=== PATIENT | male | born 1960 | race Caucasian/White ===

== ENCOUNTER 2017-07-22 05:51 | Emergency (ER) | payer OTHER ==
[~2017-07-22] VITALS: Ht 175.3 cm; Wt 92.0 kg
[~2017-07-22 05:51] MED LIST: LORTAB 5 OR; NAPROSYN375 MG OR; NO HOME MEDS; ZOFRAN ODT4 MG OR
[2017-07-22] MEDS ORDERED: TAMSULOSIN0.4 MG PO ×2 (06:01→07:50)
[2017-07-22] MEDS ORDERED: OXYCODONE PO (06:03)
[2017-07-22] MEDS ORDERED: ACETA PO (06:03)
[2017-07-22 06:41] LABS: HEMATOCRIT 43.7 % (39.0-50.0); HEMOGLOBIN 14.9 g/dl (14.0-18.0); IMMATURE GRANULOCYTES 0.2 % (0.0-1.0); MEAN CELL VOLUME 91.4 fL CALC (80.0-100.0); MEAN CORPUSCULAR HGB 31.2 pG CALC (26.0-32.0); MEAN CORPUSCULAR HGB CONC 34.1 g/L CALC (32.0-36.0); NEUT# 7.5 thou/uL (1.82-7.42); RED BLOOD COUNT 4.78 mill/uL (4.70-6.10); RED CELL DISTRI WIDTH 13.1 % (11.5-15.5)
[2017-07-22 06:52] LABS: ALBUMIN 4.2 g/dL (3.2-5.0); ALKALINE PHOSPHATASE 79 u/l (38-126); ANION GAP 18 (6-22 (CALC)); BILIRUBIN, TOTAL 0.5 mg/dL (0.0-1.4); BUN 14 mg/dL (9-20); BUN/CREATININE RATIO 15 (12-20 (CALC)); CARBON DIOXIDE 23 mmol/l (22-30); CHLORIDE 109 mmol/l (95-108); GFR > 60 ML/MIN (>=60 (CALC)); GFR FOR AFR.AMER. > 60 ML/MIN (>=60 (CALC)); POTASSIUM 3.8 mmol/l (3.5-5.1); SGOT/AST 29 u/l (17-59); SGPT/ALT 62 u/l (21-72); SODIUM 146 mmol/l (137-146); TOTAL PROTEIN 7.4 g/dL (6.3-8.2)
[2017-07-22] MEDS ORDERED: CEPHALEXIN500 M1 PO (07:50)
[2017-07-22] MEDS ORDERED: HYDROCO/APAP1 TA9 PO (07:50)
[2017-07-22] MEDS ORDERED: MOTRIN400 MG PO (07:50)
[2017-07-22 08:11] VITALS: BP 178/81
[2017-07-22 08:14] LABS: URINE BILIRUBIN - DIPSTICK NEGATIVE (NEGATIVE); URINE BLOOD DIPSTICK MODERATE (NEGATIVE); URINE CLARITY CLEAR; URINE COLOR YELLOW; URINE GLUCOSE - DIPSTICK 100 mg/dL (NEGATIVE); URINE KETONE NEGATIVE (NEGATIVE); URINE LEUK ESTERASE NEGATIVE (NEGATIVE); URINE PH 5.5 (4.5-8.0); URINE PROTEIN - DIPSTICK NEGATIVE (NEG-TRACE); URINE SPECIFIC GRAVITY 1.025; URINE UROBILINOGEN - DIPSTICK 0.2 E.U./dL (0.2)
[2017-07-22 08:18] LABS: URINE NITRITE - DIPSTICK NEGATIVE (Negative)
[2017-07-22 08:24] LABS: URINE EPITHELIAL CELLS RARE EPI/hpf (0-FEW); URINE WBC 0-2 WBC/hpf (0-5)
== END 2017-07-22 08:32 | disposition home or self-care (01) | DRG 694 ==
LOC: ED 05:51
PROVIDERS: Emergency Medicine
DX: N13.2 Hydronephrosis with renal and ureteral calculous obstruction (principal); R11.0 Nausea; Z87.442 Personal history of urinary calculi
CPT/HCPCS: Q9967

== ENCOUNTER 2019-08-15 11:01 | Emergency (ER) | payer OTHER ==
[~2019-08-15 11:01] MED LIST changes: +ACETA PO; +CEPHALEXIN500 M1 PO; +HYDROCO/APAP1 TA9 PO; +MOTRIN400 MG PO; +OXYCODONE PO; +TAMSULOSIN0.4 MG PO
[2019-08-15] MEDS ORDERED: LISINOPRIL10 MG PO (11:26)
[2019-08-15] MEDS ORDERED: ATORVASTATIN CA20 MG PO (11:26)
[2019-08-15] MEDS ORDERED: BACTRIM DS1 TAB PO (11:46)
[2019-08-15 11:53] VITALS: BP 132/68
== END 2019-08-15 11:53 | disposition home or self-care (01) | DRG 603 ==
LOC: ED 11:01
DX: L02.31 Cutaneous abscess of buttock (principal); L03.317 Cellulitis of buttock; I10 Essential (primary) hypertension

== ENCOUNTER 2020-05-17 20:08 | Emergency (ER) | payer OTHER ==
[~2020-05-17] VITALS: Ht 175.3 cm; Wt 90.0 kg
[~2020-05-17 20:08] MED LIST changes: +ATORVASTATIN CA20 MG PO; +BACTRIM DS1 TAB PO; +LISINOPRIL10 MG PO
[2020-05-17 21:03] LABS: HEMATOCRIT 41.5 % (39.0-50.0); HEMOGLOBIN 13.7 g/dl (14.0-18.0); IMMATURE GRANULOCYTES 0.3 % (0.0-5.0); MEAN CELL VOLUME 90.8 fL CALC (80.0-100.0); NEUT# 3.78 thou/uL (1.82-7.42); RED BLOOD COUNT 4.57 mill/uL (4.70-6.10)
[2020-05-17 21:21] LABS: ALBUMIN 3.6 g/dL (3.2-5.0); ALKALINE PHOSPHATASE 70 u/l (38-126); ANION GAP 12 (6-22 (CALC)); BILIRUBIN, TOTAL 0.6 mg/dL (0.0-1.4); BUN 10 mg/dL (9-20); BUN/CREATININE RATIO 16 (12-20 (CALC)); CARBON DIOXIDE 22 mmol/l (22-30); CHLORIDE 104 mmol/l (95-108); CREATININE 0.7 mg/dL (0.7-1.3); GFR > 60 ML/MIN (>=60 (CALC)); GFR FOR AFR.AMER. > 60 ML/MIN (>=60 (CALC)); POTASSIUM 3.9 mmol/l (3.5-5.1); SGOT/AST 39 u/l (17-59); SODIUM 134 mmol/l (137-146); TOTAL PROTEIN 6.6 g/dL (6.3-8.2)
[2020-05-17 21:59] VITALS: BP 143/71
== END 2020-05-17 22:05 | disposition home or self-care (01) | DRG 179 ==
LOC: ED 20:08
PROVIDERS: Family Medicine
DX: U07.1 COVID-19 (principal); R53.83 Other fatigue; R11.0 Nausea; R52 Pain, unspecified; R63.0 Anorexia; I10 Essential (primary) hypertension